=== PATIENT | female | born 1945 | race Caucasian/White ===

== ENCOUNTER → 2019-04-30 09:56 | Outpatient (CLI) | payer MEDICARE, SELFPAY ==
[2019-04-30 09:56] VITALS: BMI 26.4
--- NOTE | 2019-04-30 09:57 | RAD_ITS ---
STUDY: X-RAY - RIGHT SHOULDER REASON FOR EXAM: Female, 74 years old. Right shoulder pain TECHNIQUE: 4 view(s) of the shoulder. COMPARISON: None. FINDINGS: There is mild degenerative arthrosis of the glenohumeral articulation. There is degenerative arthrosis of the acromioclavicular joint without inferior osseous spur formation. Normal acromion. Normal humeral head and visualized proximal humerus. The soft tissue structures are unremarkable. Normal visualized pulmonary apex. RAD/Shoulder min 2 Views IMPRESSION: No acute findings. Mild degenerative changes. Electronically Signed: Curt Mcnair DO at 12:41 EDT Tel , Service support ,
== END ==
PROVIDERS: Referring Provider Orthopaedic Surgery; Visit Provider Orthopaedic Surgery
DX: M25.511 Pain in right shoulder (principal)
CPT/HCPCS: 73030

== ENCOUNTER → 2019-05-20 11:14 | Outpatient (CLI) | payer MEDICARE, SELFPAY ==
[2019-05-07 12:16] VITALS: BMI 26.4
--- NOTE | 2019-05-20 11:17 | MRI_ITS ---
STUDY: MRI RIGHT SHOULDER REASON FOR EXAM: Right shoulder and arm pain since August 2017 after lifting boxes. TECHNIQUE: Standardized fat and water weighted pulse sequences were obtained in all 3 orthogonal planes. COMPARISON: Radiographs 04/30/2019. FINDINGS: There is mild supraspinatus tendinosis and a full thickness tear of the distal anterior supraspinatus tendon (T2 coronal images 13, 14) measuring approximately 1.1 cm in length and width. Normal infraspinatus tendon. There is mild subscapularis tendinosis (T2 axial image 11) without discrete tendon tear. Normal teres minor tendon. Normal supraspinatus muscle. Normal infraspinatus muscle. Normal subscapularis muscle. Normal teres minor muscle. There is glenohumeral arthrosis with chondral thinning (T2 coronal images 10, 11) and subchondral cystic change of the inferior glenoid. There is a glenohumeral joint effusion with synovitis in the axillary bursa (T2 coronal images 5, 6). Normal humeral head and visualized proximal humerus. There is suspected tear with nonvisualization of the intracapsular long biceps tendon. Normal labrum. There is acromioclavicular arthrosis with small undersurface osteophytes (T2 sagittal images 15, 16). There is a Type I morphology (flat undersurface), with a neutral orientation. There is a small volume of subacromial-subdeltoid bursal fluid. There is mild thickening of the coracoacromial ligament (T2 sagittal image 13). Normal deltoid muscle. Normal trapezius muscle. MRI/Upper Ext Joint Only(Routine) IMPRESSION: Full-thickness tear and mild tendinosis of the supraspinatus tendon. Mild subscapularis tendinosis. Glenohumeral arthrosis. Suspected tear of the intracapsular long biceps tendon. Acromioclavicular arthrosis. Mild thickening of the coracoacromial ligament. Glenohumeral joint fluid communicating with the subacromial-subdeltoid bursa. Electronically Signed: Yonatan Uriostegui MD at 12:25 EDT Tel , Service support ,
== END ==
PROVIDERS: Referring Provider Orthopaedic Surgery; Visit Provider Orthopaedic Surgery
DX: M67.911 Unspecified disorder of synovium and tendon, right shoulder (principal)
CPT/HCPCS: 73221

== ENCOUNTER 2019-05-28 10:00 | Outpatient (RCR) | payer MEDICARE, SELFPAY ==
--- NOTE | 2019-04-14 15:32 | HP.PTEVAL_ITS ---
Patient's Visit Information JEANA WOLFE is a 74 year old F referred to Physical Therapy by YADIRA BOURGEOIS with a diagnosis of Right Shoulder and Right Sciatica. Date of Evaluation: 04/14/19 Physical Therapist: Nely Currie DPT - Visit Plan Frequency: 2x /Week Duration: 4 Weeks Plan: Shoulder: focus on ROM, strength, function and pain mgmt. Lumbar Spine: Focus on core s/s and pain mgmt - Subjective Findings: A year ago she thought she tore a muscle- the MD thought it was torn as well and gave her a HEP and she did not continue threm- Right shoulder. In February she had a pain that radiating in her right buttock and he diagnosed her with sciatica. Was taking down boxes out of a storage room- felt something happen. Pain is located along in the shoulder and radiates to the elbow and up into the neck. Does radiate to the wrist but not very often. Right hand dominate. Describes the pain as achy. Worst: 8/10 Agg: movement- behind her back, getting dressed Best: 5/10 Eases: nothing helps. No N/T- no increase in GARCIA, blurred vision or dizziness. Has not had x-rays or an MRI. No injections in the shoulder. Sleep: disturbed. No problems with finger dexterity or recreation activities coordinator. Back started at end of January- insidous onset. Pain is located along the belt line and radiates to the buttock area. Does radiate to the knee- right side only. Describes that pain as sharp and sometimes just aches. Hard to get comfortable. Worst: 8/10 Agg: nothing that she can think Eases: muscle relaxer, prednisone (helped a little). Best: 0/10 with the medication. Sleep: distrubed- side sleeper. No notice of leg weakness or buckling of the knees. No loss of change in magdalena/bladder. No x-rays or MRI- no injections. Fully I with ADl's and drives but it hurts- likes to craft so she is up/down in her craft room all day. PMHx: HTN, cholseterol Meds: anti- depressant, cholesterol med and HTN me - Objective Posture: FH, RS, increased kyphosis- does not correct with VC's and guards right shoulder. Gait: slight deviation-decreased stance on right LE. HR/TR: able with UE A. SLS: WS but unable to SLS and reports pain. ROM: Cervical: WFL but reports pain with rot to the right. Shoulder: Arom- flexio: 90 degrees, abd: 90 degrees, IR: to greater troch, ER: 60 degrees, Elbow/Wrist: WNLPassive- unable due to decreased tolerance to be supine. Lumbar: Flexion: hands to knees with p ain, Extn: neutral with pain, SB and rotation: WFL pain with rotation to the right. Hip/Knee/ Ankle: WNL. Strength: Shoulder: 2+/5, Elbow: 4/5, Wrist: 4/5, Reports Developer: diminished. Core: poor, Hip: 4-/5 throughout, Knee: 4/5, Ankle: 4+/5. Sensation: WFL. Special Test: dural signs positive. Difficult to assess due to increased pain in shoulder and back - Goals Goal 1:: Patient will be I with HEP and progression Goal Time Frame: 4-6 Weeks Goal 2:: Patient will maintain proper posture to demo increased core and scap s/s. Goal Time Frame: 4-6 Weeks Goal 3:: Patient will demo full Arom of the right shoulder Goal Time Frame: 4-6 Weeks Goal 4:: patient will report sleeping through the night for 1 week Goal Time Frame: 4-6 Weeks Goal 5:: Patient will report pain under 4/10 for 1 week Goal Time Frame: 4-6 Weeks - Rehabilitation Potential Physical Therapy Diagnosis: Patient presents with hypomobility-she has decreased rom, strength and muscular endurance leading to increased pain with ADL's. Rehabilitation Potential: Fair - Anticipated Interventions Patient/Client Instruction: Educate patient on: Benefits of Fitness Program Therapeutic Exercise to Include: Strength training, Endurance training, Body mechanics, Postural training, Passive ROM, Active ROM, Dynamic Lumbar Stabilization, Scapular Strength/Stabilization For the Purpose of:: To improve muscle performance and motor function TENS: Yes Cryotherapy (ice pack, ice massage): Yes Thermo therapy (hot pack): Yes Ultrasound (thermal/non thermal): Yes For the Purpose of:: To decrease pain Thank you for the opportunity to evaluate your patient. For Medicare and Medicare HMO plans, please review the plan of care and approve it. It will need to be FAXED BACK to us at [phone] for Medicare purposes. For Medicare only, by signing this I certify the plan of care. Please let me know if there are questions or concerns regarding this plan of care. Physician Signature: Date:
--- NOTE | 2019-05-28 10:35 | HP.PTDCSUM_ITS ---
HP - PT D/C Summary It has been my pleasure to treat JEANA WOLFE under orders from YADIRA BOURGEOIS, for the diagnosis of Right Shoulder and Right Sciatica for a total of 9 visit(s). Discharge Date: Please see the following information for a summary of their discharge status. - Subjective Subjective: Shoulder- has gotten better- saw on Friday-had an MRI which showed a tear and OA- gave 3 options- shoulder replacement, PT or arthroscopic. Wants to try to do the exercises that David gave her with a band- does feel confident with exercise. Feels about 70% better. Can't lay on that side- nothing she can't do just with pain. Patient feels that the sciatica is better she is now only having pain occasionally- does have the ache but the pain is less. Feels that she is 75% better. Also has exercises for her back and feels confident with them. Would like to try exercises at home but would like ot have the option of coming back to pt. - Pain Right Shoulder Pain Intensity (Out of 10): 0 Back Pain Intensity (Out of 10): 0 - Objective Objective/Function: Posture: FH, RS, increased kyphosis- can correct but does not maintain- does not guard right shoulder- even height Gait: no deviation noted- good trunk rotation and arm swing HR/TR: able with UE A from wall. SLS: 5 seconds on right- no discomfort noted but does report feeling unstable. ROM: Cervical: WFL. Shoulder: Arom- flexion: 90 degrees, abd: 90 degrees, IR: to greater troch, ER: 60 degrees- pain with flexion/abduction and IR Elbow/Wrist: WNL Lumbar: Flexion: hands to toes, Extn: neutral, SB and rotation: WFL- no pain with lumbar ROM. Hip/Knee/ Ankle: WNL. Strength: Shoulder: 2+/5, Elbow: 4+/5, Wrist: 4+/5, Legal Services Manager: equal but weak. Core: poor, Hip: 4-/5 throughout, Knee: 4/5, Ankle: 4+/5. Sensation: WFL. Special Test: dural signs positive on the right. - Goals Goal 1:: Patient will be I with HEP and progression Goal Progress: Goal Met Goal 2:: Patient will maintain proper posture to demo increased core and scap s/s. Goal Progress: Progressing Goal 3:: Patient will demo full Arom of the right shoulder Goal Progress: Not Progressing Goal 4:: patient will report sleeping through the night for 1 week Goal Progress: Progressing Goal 5:: Patient will report pain under 4/10 for 1 week Goal Progress: Progressing - Plan Plan: Discharge to home exercise program given by AGRICULTURAL RESEARCH TECHNOLOGIST last session- encouraged to call if questions or concerns or if she needs new bands. - D/C Information If there are questions or concerns regarding this patient's physical therapy, please feel free to call me at [phone]. Thank you for the referral of this patient. Sincerely, FELIX SimmonsT
== END 2019-05-28 19:00 | disposition home or self-care (01) ==
LOC: PT 10:00
DX: M54.31 Sciatica, right side (principal); M75.21 Bicipital tendinitis, right shoulder
CPT/HCPCS: 97110; 97161; 97164

== ENCOUNTER 2020-12-26 19:52 | Outpatient (RCR) | payer MEDICARE, SELFPAY ==
[2020-12-25 09:20] VITALS: BMI 26.4
[2020-12-26] MEDS: COVID-19 VACC, MRNA(PFIZER)/PF 30 MCG/0.3 ML SYRINGE IM (17:04)
[2021-01-16] MEDS: COVID-19 VACC, MRNA(PFIZER)/PF 30 MCG/0.3 ML SYRINGE IM (16:57)
== END 2021-03-27 23:59 ==
LOC: IMMUN 19:52
PROVIDERS: PCP Family Medicine; Visit Provider Family Medicine
DX: Z23 Encounter for immunization (principal)
CPT/HCPCS: 0001A; 0002A; 91300